=== PATIENT | male | born 1965 | race Caucasian/White ===

== ENCOUNTER → 2019-01-30 | Outpatient (CLI) | payer OTHER ==
[~2019-01-30] VITALS: Ht 182.9 cm; Wt 88.5 kg
[~2019-01-30] MED LIST: ALEVE220 MG PO; AMBEREN; AMPHETAMINE SAL10 MG PO; CLARITIN10 MG PO; FLOMAX PO; FLOMAX0.4 MG PO; IBUPROFEN 600600 M1 PO; LAMICTAL XR200 MG PO; LIPITOR10 MG PO; NORCO 5-325 TA1 EACH PO; RISPERDAL0.5 MG PO; TYLENOL EX-STR500 M2 PO; XANAX 0.5 MG0.5 MG PO; [UNRECOGNIZED DRUG - OTHER]
[2019-01-30 08:53] VITALS: BP 120/71
--- NOTE | 2019-01-30 08:56 | NUR ---
Pain Clinic Assessment: 1. History of Osteoarthritis: NONE History of Rheumatoid Arthritis: NONE 2. Height: 6 ft. in. 182.9 cm. Weight: 195.0 lb. oz. 88.452 kg. Patient's BMI: 26.4 3. Vital Signs: BP: 120/71 Pulse: 83 Resp: 16 Temp: 02 Sat: 98 ECG Mon: 4. Pain Intensity: 1-NOW, 3-AVG, 9-WORST 5. Fall Risk: Dizziness: Y Needs help standing or walking: N Fallen in the last 3 months: N Fall risk comments: HAS HAD BOUTS OF QUICK VERTIGO WHEN WALKING, PASSES AND THEN HAS LINGERING FEELING OF BEING OFF BALANCE FOR ABOUT AN HOUR. NOT FALLS 6. Patient on Blood Thinner: None 7. History of Hypertension: N 8. Opioid Therapy greater than 6 weeks: Opiate Contract Signed: 9. Risk Assessment Tool Provided: 10. Functional Assessment Tool: 11. Recreational Drug Use: Never Drug Type: Tobacco Use: Never Smoker Tobacco Type: Amount or Packs/day: How Many Years: Alcohol Use: No Frequency: Quant:
--- NOTE | 2019-02-04 17:05 | HPC ---
[facility] [address] [place] [address] PAIN MANAGEMENT CONSULTATION Name: MAXIMINO BORJAS Room #: [facility].#: [id number] Admission: 01/30/19 ������������������ Attend Phys: Jamila Maldonado MD Discharge: ������������������ Date of : 67 Report #: [id number] THIS REPORT FOR: //name// CC: Mariella Walker DATE OF SERVICE: 01/30/2019 CHIEF COMPLAINT: Pain in the lower back in the right side down into the leg. HISTORY: The patient is a 53-year-old gentleman, who has been referred to the pain clinic for pain involving his low back. He states that in the past he had some problems with his low back. He had an epidural injection some years ago. He noticed that the pain improved. Over the last few weeks, he has noticed some worsening of pain and increase in symptoms. He stated that he did not want to wait until the last minute for undergoing another injection. He would not like to have this pain erupt like a "volcano in his back." He states that there is a rubber-like sensation around the lower portion of his leg. He describes it as a crushing, gnawing, and tingling sensation. It can average 3/10. It is 9 at its worse. The discomfort/pain is exacerbated by sitting sometimes. PAST MEDICAL HISTORY: Attention deficit disorder, arm pain, left-sided; benign prostatic hypertrophy, nephrolithiasis, obstructive sleep apnea, on CPAP; lumbar radiculopathy, and shortness of breath. PAST SURGICAL HISTORY: Appendectomy in 1990, deviated septum surgery in 2003. CURRENT MEDICATIONS: Claritin 10 mg, Aleve 220 mg 1 q.12 hours p.r.n., alprazolam 0.5 mg b.i.d. as needed for anxiety, Lipitor 10 mg, amphetamine salts 10 mg, Flomax 0.4 mg, Risperdal 0.5 mg, Extra Strength Tylenol 500 mg capsules b.i.d., and Lamictal 200 mg. ALLERGIES: No known drug allergies. 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 He is working at this juncture. REVIEW OF SYSTEMS: Generally, in good health, wears glasses, blurred vision, hearing loss, ringing in the ears, shortness of breath, lightheadedness, numbness and tingling, memory loss/confusion, and depression. PAIN CLINIC ASSESSMENT AND PQRS: 1. History of osteoarthritis. The patient is not being treated for osteoarthritis. He is not being [place] [address] PAIN MANAGEMENT CONSULTATION Name: MAXIMINO BORJAS Room #: [facility].#: [id number] Admission: 01/30/19 ������������������ Attend Phys: Jamila Maldonado MD Discharge: ������������������ Date of : 67 Report #: [id number] 2. Pain intensity is 1 now, average of 3, and 9 at its worse. 3. Fall risk. The patient has not fallen in the last 3 months. He has had bouts of quick vertigo when walking and then has some lingering feelings of being off balance for about an hour. He has not fallen. 4. Blood thinner. The patient is not on a blood thinning medication. 5. Hypertension. The patient is not being treated for hypertension. 6. Opioids greater than 6 weeks. The patient is not on an opioid medication on a regular basis. 7. Risk assessment tool, low for opioid use. 8. Functional assessment tool, 0/70. 9. Recreational drug use. The patient denies use of recreational drugs. 10. Tobacco: The patient denies use of tobacco. 11. Alcohol: The patient denies use of alcoholic beverages. PHYSICAL EXAMINATION: GENERAL: The patient is a well-developed, well-nourished white male. He appears his stated age. He is alert and oriented x 3. Affect is appropriate. Speech is fluent. Height is 6 feet 0 inches, weight is 195 pounds, and BMI is 26.4. VITAL SIGNS: Blood pressure is 120/71, pulse is 83, respiratory rate is 16, and room air saturation is 98%. HEENT: Normocephalic, atraumatic. Extraocular eye muscles intact. Sclerae nonicteric. Mucous membranes are moist. NECK: Without adenopathy or JVD. HEART: Regular rate. ABDOMEN: Nontender. Bowel sounds present. EXTREMITIES: Upper extremity muscle strength is judged to be 5/5 for the major muscle groups in the upper extremity. The patient has pain and discomfort in the lower portion of his back in the L4-L5 dermatomal distribution with radiation down into the right leg with pain and discomfort [id number]. He has a sensation of a compressive item around his right leg. The patient is without significant scoliosis, kyphosis, or lordosis. Positive straight leg raise on the right. LABORATORY DATA: No new laboratory values are available at the time of our interview. IMPRESSION: Lumbar radiculopathy, right leg with L4-L5 dermatomal changes with weakness and sensory changes. RECOMMENDATIONS: We have discussed treatment options with the patient. Risks and benefits of an epidural steroid injection were discussed. Possible complications of the procedure were reviewed. They include but are not limited to infection, worsening of pain, no improvement in pain, spinal headache, nerve damage, and the patient elects to proceed. [facility] [address] [place] [address] PAIN MANAGEMENT CONSULTATION Name: MAXIMINO BORJAS [id number] Admission: 01/30/19 ������������������ Attend Phys: Jamila Maldonado MD Discharge: ������������������ Date of : 67 Report #: [id number] PROCEDURE NOTE: The patient was taken to the procedure area. He was then assisted in getting on examination table. His back was sterilely prepped with a Betadine solution. Fluoroscopy using anterior, posterior as well as lateral viewing were implemented. The patient's back was sterilely prepped with a Betadine solution at L4-L5. A 17-gauge Tuohy with loss of resistance technique was used to gain access to the epidural space. There was no CSF, heme, or paresthesia. A total of 80 mg Depo-Medrol, 40 mg of triamcinolone, and 2 mL of 0.25% bupivacaine was injected. The patient tolerated the procedure well. His pain was 0 at the time of discharge. A total of 8 seconds fluoroscopy time was used. We would like to thank you for letting us to participate in his care. We hope he continues to improve. ��������������������������������������������� <ELECTRONICALLY SIGNED> ���������������������������������������� By: Jamila Maldonado MD ��������������������������������������������� 02/04/19 1705 [id number] Jamila Maldonado MD /PMT
== END | disposition home or self-care (01) ==
LOC: PAIN 06:41
DX: M54.16 Radiculopathy, lumbar region (principal); F98.8 Other specified behavioral and emotional disorders with onset usually occurring in childhood and adolescence; N40.0 Benign prostatic hyperplasia without lower urinary tract symptoms; N20.0 Calculus of kidney; G47.33 Obstructive sleep apnea (adult) (pediatric); M19.90 Unspecified osteoarthritis, unspecified site; I10 Essential (primary) hypertension; Z90.49 Acquired absence of other specified parts of digestive tract; Z98.890 Other specified postprocedural states; Z79.899 Other long term (current) drug therapy

== ENCOUNTER 2019-06-10 17:37 | Emergency (ER) | payer OTHER ==
[~2019-06-10] VITALS: Ht 182.9 cm; Wt 85.5 kg
[2019-06-10 18:18] LABS: URINE BILIRUBIN NEGATIVE (Negative); URINE BLOOD 3+ (Negative); URINE CLARITY CLEAR; URINE COLOR YELLOW; URINE GLUCOSE-RANDOM* NEGATIVE (Negative); URINE KETONES NEGATIVE (Negative); URINE LEUKOCYTES-REFLEX NEGATIVE (Negative); URINE NITRITE-REFLEX NEGATIVE (Negative); URINE PROTEIN (DIPSTICK) 1+ (Negative); URINE SPECIFIC GRAVITY >= 1.030 (1.005-1.035); URINE UROBILINOGEN 0.2 E.U./dl (0.2-1.0)
[2019-06-10 18:33] LABS: URINE RBC >20 Many /HPF (0-2)
[2019-06-10 18:34] LABS: CASTS None Seen /LPF (None Seen); CRYSTALS None Seen /LPF (None Seen); SQUAMOUS 0-3 Few /LPF (0-3)
[2019-06-10 18:35] LABS: BACTERIA-REFLEX 1-9 Few /HPF (None Seen)
[2019-06-10 18:36] LABS: URINE WBC-REFLEX None Seen /HPF (0-5)
[2019-06-10 19:07] LABS: ABSOLUTE NEUTROPHILS 8.2 thou/uL (1.4-8.2); BASOPHILS 0.2 % (0.0-2.0); EOSINOPHILS 0.3 % (0.0-3.0); HEMATOCRIT 46.4 % (42.0-52.0); HEMOGLOBIN 15.4 gm/dL (14.0-18.0); LYMPHOCYTES 16.8 % (24.0-44.0); MCHC 33.1 g/dL (28.0-37.0); MCV 90.7 fL (80.0-100.0); MONOCYTES 4.9 % (1.0-8.0); PLATELET COUNT 275 thou/uL (150-400); POLYS 77.8 % (36.0-66.0); RBC 5.12 mil/uL (4.50-6.00); WBC 10.6 thou/uL (4.0-11.0)
[2019-06-10 19:11] LABS: CALCIUM 9.6 mg/dL (8.5-10.1); POTASSIUM 4.2 mmol/L (3.5-5.1)
[2019-06-10 19:17] LABS: ALBUMIN 4.9 g/dL (3.4-5.0); TOTAL BILIRUBIN 0.5 mg/dL (<0.1-1.0); TOTAL PROTEIN 8.1 g/dL (6.4-8.2)
[2019-06-10] MEDS ORDERED: TORADOL 10 MG T10 MG PO (19:46)
[2019-06-10 20:00] VITALS: BP 131/68
== END 2019-06-10 20:01 | disposition home or self-care (01) ==
LOC: ER 17:37
PROVIDERS: Physician Assistant
DX: N20.1 Calculus of ureter (principal); Z90.49 Acquired absence of other specified parts of digestive tract; Z87.442 Personal history of urinary calculi; Z87.891 Personal history of nicotine dependence